=== PATIENT | male | born 1960 | race Caucasian/White ===

== ENCOUNTER 2016-08-16 12:12 | Emergency (ER) | payer SELFPAY ==
[~2016-08-16] VITALS: Ht 188 cm; Wt 125.6 kg
[2016-08-16 12:14] VITALS: Ht 188 cm; Wt 125.6 kg
--- OUTSIDE RECORDS SUMMARY | 2016-08-16 12:16 | XMS REPORT | Continuity of Care Document ---
Author Author [facility] Organization [facility] Address Unknown Phone Unavailable Allergies Active Description Code Type Severity Reaction Onset Reported/Identified Relationship to Patient Clinical Status Yes No Known Medication Allergies NKMA N/A N/A 07/20/2014 Medications Problems Procedures Results Test Result Range Urine Microscopic - 02/20/16 10:59 Bacteria Occasional NA Epithelial Cells 0 /hpf Microscop. Exam Perf. performed NA RBC, Urine 5 /hpf 0-2 Urine Mucus Present NA WBC, Urine 0 /hpf 0-4 Encounters ACCT No. Visit Date/Time Discharge Status Pt. Type Provider Facility Loc./Unit Complaint [id number] 02/20/2016 10:38:00 2015 23:59:00 DIS Outpatient Sawyer Cooper [facility] TCPA possible kidney infection [id number] 02/01/2015 13:32:00 2014 23:59:00 DIS Outpatient Omar Dang V [facility] CDM HTN
--- OUTSIDE RECORDS SUMMARY | 2016-08-16 12:16 | XMS REPORT | Referral Summary ---
Author Author [facility] Organization [facility] Address Unknown Phone Unavailable Care Team Providers Care Correctional Program Officer Name Role Phone José Dang Primary Care Physician [phone] Encounter VC Date(s): 02/01/15 - 02/01/15 [facility] [address] [place] [address] Discharge Diagnosis: Inflammatory papule Discharge Diagnosis: Hypertension Discharge Diagnosis: Cutaneous skin tags Discharge Diagnosis: Allergic rhinitis Discharge Disposition: 01-Home or Self Care Attending Physician: Omra Dang MD Admitting Physician: Omar Dang MD Vital Signs Most recent to 1 oldest [Reference Range]: Temperature Tympanic 36.3 degC [36.6-38.1 degC] *LOW* (02/01/15 1:48 PM) Peripheral Pulse 80 bpm Rate [60-100 bpm] (02/01/15 1:48 PM) Blood Pressure 130/70 mmHg [90-140/60-90 mmHg] (02/01/15 1:48 PM) Problem List Condition Effective Dates Status Health Status Informant Anemia(Confirmed) Active Obesity(Confirmed) Active patient Allergies, Adverse Reactions, Alerts No Known Medication Allergies Medications lisinopril-hydrochlorothiazide 20 mg-25 mg oral tablet 1 tabs, Oral, Daily, # 90 tabs, 3 Refill(s), Pharmacy: [facility] #[id number] Start Date: 02/01/15 Status: Ordered Results Chemistry Most recent to 1 oldest [Reference Range]: Sodium Lvl [135-144 140 mEq/L mEq/L] (02/01/15 2:58 PM) Potassium Lvl 4.2 mEq/L [3.5-5.2 mEq/L] (02/01/15 2:58 PM) Chloride [99-111 106 mEq/L mEq/L] (02/01/15 2:58 PM) CO2 [23-31 mEq/L] 27 mEq/L (02/01/15 2:58 PM) AGAP [3-20] 7 (02/01/15 2:58 PM) BUN [8-26 mg/dL] 16 mg/dL (02/01/15 2:58 PM) Glucose Lvl [70-99 112 mg/dL mg/dL] *HI* (02/01/15 2:58 PM) Creatinine Lvl 1.16 mg/dL [0.72-1.25 mg/dL] (02/01/15 2:58 PM) eGFR [>60 mL/min] >60 mL/min 1 (02/01/15 2:58 PM) Calcium Lvl 10.4 mg/dL [8.9-10.5 mg/dL] (02/01/15 2:58 PM) 1Result Comment: Multiply eGFR results by 1.21 for race. Immunizations No data available for this section Procedures Procedure Date Related Diagnosis Body Site Collection of venous blood by venipuncture 02/01/15 ORIF - Open reduction and internal fixation 1981 of fracture-rt femur fx Social History Social History Type Response Smoking Status Never smoker Assessment and Plan Extracted from: Title: Office Visit Note Author: Omar Dang MD Date: 02/01/15 Assessment/Plan Allergic rhinitis Cutaneous skin tags Hypertension Ordered: Basic Metabolic Panel Inflammatory papule Orders: lisinopril-hydrochlorothiazide, 1 tabs, Oral, Daily, # 90 tabs, 3 Refill(s), Pharmacy: [facility] #[id number] We discussed nasal allergies and suggested [id number] fluticasone/ steroid nasal spray. May continue to use antihistamines. Zyrtec is nonsedating it could be used during the day with a single dose of Benadryl added to that at bedtime to help him sleep. His might help both nasal allergies and some of the itching problems. We also discussed moisturizing lotion to help with the itching. He may schedule back for removal of the skin tags at his convenience. Continue antihypertensive therapy check BMP as monitoring. Follow-up 6 months or sooner if needed. Extracted from: Title: Ambulatory Patient Education Author: Omar Dang MD Date: 9/ 10/15 Family Medicine Hypertension Hypertension, commonly called high blood pressure, is when the force of blood pumping through your arteries is too strong. Your arteries are the blood vessels that carry blood from your heart throughout your body. A blood pressure reading consists of a higher number over a lower number, such as 110/72. The higher number (systolic) is the pressure inside your arteries when your heart pumps. The lower number (diastolic) is the pressure inside your arteries when your heart relaxes. Ideally you want your blood pressure below 120/80. Hypertension forces your heart to work harder to pump blood. Your arteries may become narrow or stiff. Having hypertension puts you at risk for heart disease, stroke, and other problems. RISK FACTORS Some risk factors for high blood pressure are controllable. Others are not. Risk factors you cannot control include: Race. You may be at higher risk if you are . Age. Risk increases with age. Gender. Men are at higher risk than women before age 45 years. After age 65 , women are at higher risk than men. Risk factors you can control include: Not getting enough exercise or physical activity. Being overweight. Getting too much fat, sugar, calories, or salt in your diet. Drinking too much alcohol. SIGNS AND SYMPTOMS Hypertension does not usually cause signs or symptoms. Extremely high blood pressure (hypertensive crisis) may cause headache, anxiety, shortness of breath , and nosebleed. DIAGNOSIS To check if you have hypertension, your health care provider will measure your blood pressure while you are seated, with your arm held at the level of your heart. It should be measured at least twice using the same arm. Certain conditions can cause a difference in blood pressure between your right and left arms. A blood pressure reading that is higher than normal on one occasion does not mean that you need treatment. If one blood pressure reading is high, ask your health care provider about having it checked again. TREATMENT Treating high blood pressure includes making lifestyle changes and possibly taking medication. Living a healthy lifestyle can help lower high blood pressure. You may need to change some of your habits. Lifestyle changes may include: Following the DASH diet. This diet is high in fruits, vegetables, and whole grains. It is low in salt, red meat, and added sugars. Getting at least 2 1/2 hours of brisk physical activity every week. Losing weight if necessary. Not smoking. Limiting alcoholic beverages. Learning ways to reduce stress. If lifestyle changes are not enough to get your blood pressure under control, your health care provider may prescribe medicine. You may need to take more than one. Work closely with your health care provider to understand the risks and benefits. HOME CARE INSTRUCTIONS Have your blood pressure rechecked as directed by your health care provider. Only take medicine as directed by your health care provider. Follow the directions carefully. Blood pressure medicines must be taken as prescribed. The medicine does not work as well when you skip doses. Skipping doses also puts you at risk for problems. Do not smoke. Monitor your blood pressure at home as directed by your health care provider. SEEK MEDICAL CARE IF: You think you are having a reaction to medicines taken. You have recurrent headaches or feel dizzy. You have swelling in your ankles. You have trouble with your vision. SEEK IMMEDIATE MEDICAL CARE IF: You develop a severe headache or confusion. You have unusual weakness, numbness, or feel faint. You have severe chest or abdominal pain. You vomit repeatedly. You have trouble breathing. MAKE SURE YOU: Understand these instructions. Will watch your condition. Will get help right away if you are not doing well or get worse. Document Released: 05/11/2006 Document Revised: 05/16/2014 Document Reviewed: Exit[employer] Patient Information 2015 [employer]. This information is not intended to replace advice given to you by your health care provider. Make sure you discuss any questions you have with your health care provider. No follow up information was provided.
--- OUTSIDE RECORDS SUMMARY | 2016-08-16 12:16 | XMS REPORT | Referral Summary ---
Author Organization Unknown Address Unknown Phone Unavailable Care Team Providers Care Production Engine Repairer Name Role Phone José Dang Primary Care Physician [phone] Encounter VC Date(s): 07/20/14 - 07/20/14 [facility], Family Medicine [address] [place] [address] [place] [address] Discharge Diagnosis: Foot pain Discharge Diagnosis: Gout Discharge Diagnosis: Hypertension Discharge Disposition: Home or Self Care Attending Physician: Omar Dang MD Admitting Physician: Omar Dang MD Vital Signs Most recent to 1 oldest [Reference Range]: Temperature Tympanic 37.6 degC [36.6-38.1 degC] (07/20/14 1:54 PM) Peripheral Pulse 64 bpm Rate [60-100 bpm] (07/20/14 1:54 PM) Blood Pressure 175/99 mmHg [90-140/60-90 mmHg] *HI* (07/20/14 1:54 PM) Problem List Condition Effective Dates Status Health Status Informant Anemia(Confirmed) Active Allergies, Adverse Reactions, Alerts No Known Medication Allergies Medications indomethacin 25 mg oral capsule 1 caps, Oral, TID, as needed for gout pain, # 30 caps, 0 Refill(s), Pharmacy: [facility] #[id number], 1 caps Oral TID,PRN:as needed for gout pain Start Date: 07/20/14 Stop Date: 08/17/14 Status: Ordered LISINOPRIL-HCTZ 20-25 MG TAB, PK See Instructions, TAKE ONE TABLET BY MOUTH EVERY DAY, # 30 tabs, 2 Refill(s), [facility]: [facility] #[id number], TAKE ONE TABLET BY MOUTH EVERY DAY Special Instructions: TAKE ONE TABLET BY MOUTH EVERY DAY Start Date: 12/22/13 Status: Ordered LISINOPRIL-HCTZ 20-25 MG TAB, PK See Instructions, TAKE ONE TABLET BY MOUTH EVERY DAY, # 30 tabs, eRx: [facility] #[id number], TAKE ONE TABLET BY MOUTH EVERY DAY Special Instructions: TAKE ONE TABLET BY MOUTH EVERY DAY Start Date: 03/31/14 Status: Ordered lisinopril-hydrochlorothiazide 20 mg-25 mg oral tablet 1 tabs, Oral, Daily, # 30 tabs, 2 Refill(s), Pharmacy: [facility] #[id number] Start Date: 07/20/14 Status: Ordered Results Chemistry Most recent to 1 oldest [Reference Range]: Uric Acid [3.5-7.2 7.3 mg/dL mg/dL] *HI* (07/20/14 2:55 PM) Immunizations No data available for this section Procedures Procedure Date Related Diagnosis Body Site ORIF - Open reduction and internal fixation 1981 of fracture-rt femur fx Social History Social History Type Response Smoking Status Never smoker Assessment and Plan No data available for this section
--- OUTSIDE RECORDS SUMMARY | 2016-08-16 12:16 | XMS REPORT | Referral Summary ---
Author Author [facility] Organization [facility] Address Unknown Phone Unavailable Care Team Providers Care Radiographer Cardiac Catheterization Name Role Phone José Dang Primary Care Physician [phone] Encounter VC Date(s): 02/20/16 - 02/20/16 [facility], [address] [place] [address] Discharge Disposition: 01-Home or Self Care Attending Physician: Sawyer Cooper APRN Admitting Physician: Sawyer Cooper APRN Vital Signs Most recent to 1 oldest [Reference Range]: Temperature Tympanic 36.9 degC [36.6-38.1 degC] (02/20/16 11:01 AM) Peripheral Pulse 70 bpm Rate [60-100 bpm] (02/20/16 11:01 AM) Respiratory Rate 18 br/min [14-20 br/min] (02/20/16 11:01 AM) Blood Pressure 150/84 mmHg [90-140/60-90 mmHg] *HI* (02/20/16 11:01 AM) SpO2 96 % (02/20/16 11:01 AM) Problem List Condition Effective Dates Status Health Status Informant Anemia(Confirmed) Active Obesity(Confirmed) Active patient Allergies, Adverse Reactions, Alerts No Known Medication Allergies Medications lisinopril-hydrochlorothiazide 20 mg-25 mg oral tablet 1 tabs, Oral, Daily, no furthere refills until pt sees Dr. Dang., # 30 tabs, 0 Refill(s), Pharmacy: [facility] #[id number] Start Date: 01/05/16 Status: Ordered lisinopril-hydrochlorothiazide 20 mg-25 mg oral tablet See Instructions, TAKE ONE TABLET BY MOUTH DAILY, MUST CALL MD FOR APPOINTMENT BEFORE NEXT REFILL, # 30 tabs, [id number], TAKE ONE TABLET BY MOUTH DAILY, MUST CALL MD FOR APPOINTMENT BEFORE NEXT REFILL Start Date: 02/05/16 Status: Ordered Results Urinalysis Most recent to 1 oldest [Reference Range]: UA Color Yellow (02/20/16 10:59 AM) UA Appear Sl Cloudy (02/20/16 10:59 AM) UA pH [5.0-8.0] 5.5 (02/20/16 10:59 AM) UA Leuk Est Negative [Negative] (02/20/16 10:59 AM) UA Nitrite Negative [Negative] (02/20/16 10:59 AM) UA Protein Negative [Negative] (02/20/16 10:59 AM) UA Glucose Negative [Negative] (02/20/16 10:59 AM) UA Ketones Negative [Negative] (02/20/16 10:59 AM) UA Urobilinogen 0.2 mg/dL [<=1.0 mg/dL] (02/20/16 10:59 AM) UA Bili [Negative] Negative (02/20/16 10:59 AM) UA Blood [Negative] Pos 2+ *ABN* (02/20/16 10:59 AM) UA Spec Grav 1.020 [1.003-1.030] (02/20/16 10:59 AM) Type Cl Catch (02/20/16 10:59 AM) UA WBC [0-4] 0-2 (02/20/16 10:59 AM) UA RBC [0-2] 5-10 *ABN* (02/20/16 10:59 AM) Epithelial Cells 0-2 (02/20/16 10:59 AM) UA Bacteria Occasional *ABN* (02/20/16 10:59 AM) UA Mucous Present (02/20/16 10:59 AM) Immunizations No data available for this section Procedures Procedure Date Related Diagnosis Body Site ORIF - Open reduction and internal fixation 1981 of fracture-rt femur fx Social History Social History Type Response Smoking Status Never smoker Assessment and Plan No data available for this section
--- OUTSIDE RECORDS SUMMARY | 2016-08-16 12:37 | XMS REPORT | Continuity of Care Document ---
Author Author [facility] Organization [facility] Address Unknown Phone Unavailable Allergies Active Description [...] Status Pt. Type Provider Facility Loc./Unit Complaint [id number] 02/20/2016 10:38:00 2015 23:59:00 DIS Outpatient Sawyer Cooper Via [facility] TCPA possible kidney infection [id number] 02/01/2015 13:32:00 2014 23:59:00 DIS Outpatient Omar Dang V [facility] CDM HTN
--- NOTE | 2016-08-16 13:50 | NUR ---
ROOM PT TO [facility]ELAS BED 7. NO CHANGE IN CONDITION
[2016-08-16] MEDS ORDERED: AMOX875T2 PO (14:07)
--- NOTE | 2016-08-16 14:08 | ERPDOC ---
Departure Disposition Decision Date: Aug 16, 2016 Disposition Decision Time: 14:06 Disposition: 01 DISCHARGED HOME, SELF-CARE Impression Impression Impression: Primary Impression: Pain, dental Severity: Mild Condition: Improved Seen By: Physician only Referrals: ISREAL KRISHNAMURTHY DO (Family) 2 Days Patient Instructions: Dental Caries (ED), ED Dental Follow-up, Toothache (ED) Problems/Meds/Labs Reviewed?: Yes Medications reviewed and manag: Yes Follow up care ordered?: Yes Mental Status: Alert, Oriented Scripts Amoxicillin (Amoxicillin) 875 Mg Tablet 1 TAB PO Q12H for 10 Days, #20 TAB 0 Refills Prov: ROBB PATEL 08/16/16 HPI - General Medical General Chief Complaint: Toothache Stated Complaint: ABSCESS TOOTH/SWOLLEN Time Seen by Provider: 12:14 Source: patient Exam Limitations: no limitations HPI - General Medical Initial Comments 56-year-old male presents to emergency department the chief complaint of facial swelling and dental pain. Patient noted onset of symptoms 2-3 days ago. Patient states that he notes a mild dull aching sensation at the site of swelling. No radiation of pain. Symptoms have been persistent in nature since onset. Patient was at home when his symptoms began. Symptoms had a gradual progression in nature since onset. Patient has a history of similar symptoms in the past. Patient has a history of diffusely poor dental dentition. Patient does state that he has an appointment with his dentist on Thursday. Patient is seeking antibiotic and pain medication until he gets to his dental appointment. Occurred At: home Onset: Gradual Allergies: Coded Allergies: No Known Allergies (Unverified , 08/16/16) Past History Past Medical History Metabolic: hypertension Surgical History Denies Surgeries Family History Family PMH: FOUND: asthma, diabetes Social History Smoking Status: Never smoker Substance Use Type: does not use Alcohol Intake: none Review of Systems Constitutional Constitutional: DENIES: chills, fever Eyes General: DENIES: erythema, exudate Lids/Accessories: DENIES: erythema, swelling Vision: DENIES: acuity, blurring ENMT Ears: DENIES: drainage, erythema Hearing: DENIES: hearing loss Balance: DENIES: ataxia, falling to one side Sinuses: DENIES: congestion, pain Nose: DENIES: nosebleeds, pain Mouth/Throat: DENIES: painful swallowing, sore throat Teeth: pain Jaw: DENIES: pain Cardiovascular Cardiac: DENIES: chest pain, dyspnea on exertion Rhythm/Rate: DENIES: irregular beat, palpitations Vascular: DENIES: pedal edema, unilateral swelling Pulmonary Respiratory: DENIES: cough, dyspnea, pleuritic chest pain, sputum GI Upper Abdomen: DENIES: nausea, pain, vomiting Lower Abdomen: DENIES: diarrhea, pain General: DENIES: dysuria, pain Musculoskeletal General: DENIES: pain, tenderness Integumentary Skin: DENIES: itching, rash Neurological General: DENIES: headache, numbness, weakness Psychiatric Psychiatric: DENIES: emotional instability, suicidal ideation/attempt Endocrine Endocrine: DENIES: polydipsia, polyphagia Hematologic/Lymphatic Hematologic/Lymphatic: DENIES: frequent nosebleeds, lymphadenopathy Allergic/Immunological Allergic/Immunoligical: DENIES: allergic reactions, hives Physical Exam General General Nourishment: well nourished, well developed, appears stated age, no acute distress, adult General Body Habitus: well groomed Vitals and Pain First Documented Vital Signs Date Time Temp Pulse Resp B/P Pulse Ox O2 Delivery O2 Flow Rate FiO2 08/16/16 12:14 98.5 68 18 177/86 99 Room Air Weight: Kilograms: 125.600 Height (feet): 6 Height (inches): 2.00 Triage Pain Scale: RN VS reviewed by Provider: Yes Normal Exams: Head: Normocephalic w/o trauma Eyes: Pupils are PERRLA w/ EOMI, No scleral icterus, irritation, or foreign bodies noted ENMT: No facial trauma, nasal exudates, pharyngeal erythema, or exudates are noted Neck: Full range of motion, without adenopathy, JVD, bruits or thyromegaly Chest/Resp: Clear all pisano, with good airflow, and symmetry bilaterally CV: Regular rate and rhythm, without murmur or gallop, Pulses 2+ all extremities, capillary refill, <2 seconds all ext., no pedal edema noted Abdomen: Bowel sounds positive, soft, non-tender, non-distended, no hepatosplenomegaly, masses or bruits noted Lymphatic: No lymphadenopathy, or lymphedema noted Musculoskeletal: No tenderness, or deformity noted, good range of motion, all extremities Integumentary: No rashes, hives, or bruising noted, hair and nails, without abnormality Neurologic: Patient is alert, and oriented, cranial nerves, motor/sensory/ cerebellar, exams w/o gross deficits, to observation Psychiatric: Patient exhibits, appropriate attention, emotion and affect ENMT (brief) Comments Oral - he should has diffusely poor dentition. Teeth number 18 and 19 are tender to percussion. Diffuse dental caries are noted. Small area of possible fluctuance is noted at the base of the teeth. Uvula is midline. Voice is normal. No facial cellulitis. Trace facial swelling. No elevation of tongue. Handling secretions without difficulty. Differential Diagnoses Considering: Other (abscess/dental pain/dental caries/dental trauma) Progress Progress Progress Patient refuses to allow me to drain the potential dental abscess in the emergency department. Patient states that he only wishes to have his dentist work on his teeth or drain any areas of abscess. Risk versus benefit of this is discussed in detail with the patient who verbalizes agreement and understanding. Patient is provided with a prescription for amoxicillin. Patient states he will continue using [id number] anti-inflammatory medications as needed for pain control. Patient denies any other complaints or associated symptoms. Patient verbalizes understanding of risk versus benefit of not draining the dental abscess in the emergency Department. Patient is discharged home in improved condition. He is to follow up as instructed. Patient is to keep his appointment with his dentist on Thursday. Patient is to return to the emergency department if his condition worsens or changes in any manner. Patient declined recommended IV antibiotics in the emergency department as well. ROBB PATEL DO Aug 16, 2016 14:08
[2016-08-16] MEDS ORDERED: FERR325T40 PO (14:11)
[2016-08-16] MEDS ORDERED: LISI1TAB13 PO (14:11)
[2016-08-16] MEDS ORDERED: IBUP-1724 PO (14:11)
[2016-08-16 14:12] VITALS: BP 156/81; PULSE 72; RESP 16; TEMP 98.5; O2SAT 98
--- NOTE | 2016-08-16 14:12 | NUR ---
DISMISSAL DISMISSAL INSTRUCTIONS WITH RX FOR AMOXICILLIN 875MG PO. NO FURTHER QUESTIONS AT THIS TIME. PT LEFT DEPARTMENT AMBUALTORY
== END 2016-08-16 14:12 | disposition home or self-care (01) ==
LOC: ED 12:12
DX: K02.9 Dental caries, unspecified (principal); R22.0 Localized swelling, mass and lump, head

== ENCOUNTER → 2016-09-22 | Outpatient (CLI) | payer SELFPAY ==
[~2016-09-22] VITALS: Ht 188 cm; Wt 131.4 kg
[~2016-09-22] MED LIST: AMOX875T2 PO; FERR325T40 PO; IBUP-1724 PO; LISI1TAB13 PO; SALINE FLUSH 10ml SYRINGE ONE
--- NOTE | 2016-09-23 06:55 | ESTF ---
DATE OF PROCEDURE September 22, 2016 This is a 56-year-old gentleman with chest pain and was referred for further evaluation by stress testing. PROCEDURE 1. Treadmill Myoview. IMPRESSION 1. Baseline EKG is normal. 2. He walked a total of 5 minutes and 30 seconds into Stage 2 of Anastacio protocol. 3. 85% predicted maximal heart rate was exceeded. 4. He reported no angina but complained of shortness of breath. 5. Hemodynamic response to exercise was appropriate. 6. 12.5 mCi of Myoview was given for rest images and 32.2 mCi for stress images. 7. There were no ischemic EKG changes. 8. There were no arrhythmias. 9. Nuclear perfusion images revealed normal coronary perfusion with no scar or ischemia. 10. Quantitative ejection fraction is measured at 57%. MTDD
== END ==
LOC: IMA 12:08
PROVIDERS: ATTEND Internal Medicine Cardiovascular Disease
DX: R07.2 Precordial pain (principal)
CPT/HCPCS: 93017